=== PATIENT | female | born 1990 | race Caucasian/White ===

== ENCOUNTER 2019-01-30 20:13 | Inpatient (IN) | payer OTHER ==
[~2019-01-30] VITALS: Ht 170.2 cm; Wt 95.0 kg
[~2019-01-30 20:13] MED LIST: ABAT250V; IBUP800; OXYACE5T PO; PRENATAL + DHA1 EAC1 PO
[2019-01-30 20:47] LABS: BASOPHILS ABSOLUTE AUTO 0.04 K/mm3 (0.00-0.23); BASOPHILS PERCENT AUTO 0 % (0-2); EOSINOPHILS ABSOLUTE AUTO 0.13 K/mm3 (0.00-0.68); EOSINOPHILS PERCENT AUTO 1 % (0-6); Hematocrit 37.6 % (33.0-51.0); Hemoglobin 12.6 g/dL (11.5-16.0); IMMATURE GRAN ABSOLUTE AUTO 0.04 K/mm3 (0.00-0.10); IMMATURE GRAN PERCENT AUTO 0 % (0-1); LYMPHOCYTES ABSOLUTE AUTO 2.57 K/mm3 (0.84-5.20); LYMPHOCYTES PERCENT AUTO 28 % (21-46); MONOCYTES ABSOLUTE AUTO 0.48 K/mm3 (0.16-1.47); MONOCYTES PERCENT AUTO 5 % (4-13); Mean Corpuscular HGB 32.3 pg (26.0-34.0); Mean Corpuscular HGB Conc 33.5 g/dL (31.5-36.5); Mean Corpuscular Volume 96 fL (80-100); Mean Platelet Volume 11.7 fL (9.1-12.4); NEUTROPHILS ABSOLUTE AUTO 5.92 K/mm3 (1.96-9.15); NEUTROPHILS PERCENT AUTO 65 % (41-73); Platelet Count 219 K/mm3 (150-400); RDW Standard Deviation 45.8 fL (35.1-46.3); White Blood Cell Count 9.18 K/mm3 (4.00-11.30)
[2019-01-30] MEDS ORDERED: OMEPRAZOLE20 MG PO (20:53)
--- NOTE | 2019-01-31 11:41 | NUR ---
@1000 MOTHER SET UP WITH PUMP AND STARTED PUMPING
--- NOTE | 2019-01-31 19:20 | NUR ---
REPORT TO TIGRE PARRA
--- NOTE | 2019-01-31 22:13 | NUR ---
REPORT TO TIGRE HENRY
[2019-02-01 05:22] LABS: BASOPHILS ABSOLUTE AUTO 0.03 K/mm3 (0.00-0.23); BASOPHILS PERCENT AUTO 0 % (0-2); EOSINOPHILS ABSOLUTE AUTO 0.14 K/mm3 (0.00-0.68); EOSINOPHILS PERCENT AUTO 1 % (0-6); Hematocrit 36.4 % (33.0-51.0); IMMATURE GRAN ABSOLUTE AUTO 0.04 K/mm3 (0.00-0.10); IMMATURE GRAN PERCENT AUTO 0 % (0-1); LYMPHOCYTES ABSOLUTE AUTO 2.69 K/mm3 (0.84-5.20); LYMPHOCYTES PERCENT AUTO 24 % (21-46); MONOCYTES ABSOLUTE AUTO 0.65 K/mm3 (0.16-1.47); MONOCYTES PERCENT AUTO 6 % (4-13); Mean Corpuscular HGB 32.7 pg (26.0-34.0); Mean Platelet Volume 11.4 fL (9.1-12.4); NEUTROPHILS ABSOLUTE AUTO 7.64 K/mm3 (1.96-9.15); NEUTROPHILS PERCENT AUTO 68 % (41-73); Platelet Count 148 K/mm3 (150-400); RDW Coefficient Variation 12.9 % (11.7-14.2); RDW Standard Deviation 47.4 fL (35.1-46.3); Red Blood Cell Count 3.67 M/mm3 (3.80-5.20); White Blood Cell Count 11.19 K/mm3 (4.00-11.30)
[2019-02-01 05:28] LABS: Mean Corpuscular Volume 99 fL (80-100)
[2019-02-01] MEDS ORDERED: IBUP600 PO (11:24)
--- NOTE | 2019-02-01 13:15 | NUR ---
D/C HOME AMBULATING WITH AND FAMILY.
== END 2019-02-01 14:00 | disposition home or self-care (01) | DRG 807 ==
LOC: BC 20:13
PROVIDERS: Obstetrics & Gynecology; ADMIT Nurse Practitioner Obstetrics & Gynecology
PROC: 3E0P7VZ Introduction of Hormone into Female Reproductive, Via Natural or Artificial Opening (ICD-10-PCS; 2019-01-30)
PROC: 10E0XZZ Delivery of Products of Conception, External Approach (ICD-10-PCS; principal; 2019-01-31)
PROC: 3E0R3BZ Introduction of Anesthetic Agent into Spinal Canal, Percutaneous Approach (ICD-10-PCS; 2019-01-31)
PROC: 0HQ9XZZ Repair Perineum Skin, External Approach (ICD-10-PCS; 2019-01-31)
DX: O36.63X0 Maternal care for excessive fetal growth, third trimester, not applicable or unspecified (principal); Z37.0 Single live birth; Z3A.40 40 weeks gestation of pregnancy; O77.0 Labor and delivery complicated by meconium in amniotic fluid; O70.0 First degree perineal laceration during delivery
CPT/HCPCS: 36415; 51702; 85025; 86900; 86901; J1885; J2001; J2210; J2405; J2590; J3010; J7120

== ENCOUNTER 2021-08-26 20:08 | Inpatient (IN) | payer OTHER ==
[~2021-08-26] VITALS: Ht 170.2 cm; Wt 107.9 kg
[~2021-08-26 20:08] MED LIST changes: +IBUP600 PO; +OMEPRAZOLE20 MG PO
[2021-08-26 20:56] LABS: BASOPHILS ABSOLUTE AUTO 0.05 K/mm3 (0.00-0.23); BASOPHILS PERCENT AUTO 1 % (0-2); EOSINOPHILS PERCENT AUTO 3 % (0-6); Hematocrit 38.1 % (33.0-51.0); Hemoglobin 12.6 g/dL (11.5-16.0); IMMATURE GRAN ABSOLUTE AUTO 0.04 K/mm3 (0.00-0.10); IMMATURE GRAN PERCENT AUTO 0 % (0-1); LYMPHOCYTES PERCENT AUTO 23 % (21-46); MONOCYTES ABSOLUTE AUTO 0.48 K/mm3 (0.16-1.47); MONOCYTES PERCENT AUTO 5 % (4-13); Mean Corpuscular HGB 30.5 pg (26.0-34.0); Mean Corpuscular HGB Conc 33.1 g/dL (31.5-36.5); Mean Corpuscular Volume 92 fL (80-100); Mean Platelet Volume 11.3 fL (9.1-12.4); NEUTROPHILS ABSOLUTE AUTO 7.14 K/mm3 (1.96-9.15); NEUTROPHILS PERCENT AUTO 69 % (41-73); Platelet Count 280 K/mm3 (150-400); RDW Coefficient Variation 13.5 % (11.7-14.2); RDW Standard Deviation 45.5 fL (35.1-46.3); Red Blood Cell Count 4.13 M/mm3 (3.80-5.20); White Blood Cell Count 10.41 K/mm3 (4.00-11.30)
[2021-08-26 21:36] LABS: Influenza A, PCR NEGATIVE (NEGATIVE); Influenza B, PCR NEGATIVE (NEGATIVE); Resp Syncytial Virus, PCR NEGATIVE (NEGATIVE); SARS-Cov-2 (COVID-19) PCR, MMC NEGATIVE (NEGATIVE)
[2021-08-26] MEDS ORDERED: SERT100 PO (21:37)
[2021-08-28 06:36] LABS: Hematocrit 35.4 % (33.0-51.0); Hemoglobin 11.4 g/dL (11.5-16.0); Mean Corpuscular HGB 30.3 pg (26.0-34.0); Mean Corpuscular HGB Conc 32.2 g/dL (31.5-36.5); Mean Corpuscular Volume 94 fL (80-100); Mean Platelet Volume 11.3 fL (9.1-12.4); Platelet Count 217 K/mm3 (150-400); RDW Coefficient Variation 13.6 % (11.7-14.2); RDW Standard Deviation 46.7 fL (35.1-46.3); Red Blood Cell Count 3.76 M/mm3 (3.80-5.20); White Blood Cell Count 10.71 K/mm3 (4.00-11.30)
--- NOTE | 2021-08-28 07:41 | NUR ---
RN IN ROOM TO DO VITALS AND ASSESSMENT, PT SLEEPING.
[2021-08-28] MEDS ORDERED: IBUP800 PO (14:13)
--- NOTE | 2021-08-28 18:51 | NUR ---
DISCHARGE INSTRUCTIONS, WRITTEN AND VERBAL, GIVEN TO PT. ANSWERED ALL QUESTIONS AND CONCERNS. FOLLOW UP APPOINTMENT SCHEDULED. ALL PERSONAL BELONGINGS RETURNED. PT REQUESTING TORADOL AND THEN IV TO BE TAKEN OUT FOR DISCHARGE HOME, DRIVEN BY PRETTY.
--- NOTE | 2021-08-28 19:00 | NUR ---
TORADOL GIVEN, IV DISCONTINUED. PT IS DISCHARGED.
== END 2021-08-28 19:08 | disposition home or self-care (01) | DRG 807 ==
LOC: OBS 20:08 → BC 20:11 → OBS 20:19 → BC 20:21
PROVIDERS: ADMIT Nurse Practitioner Obstetrics & Gynecology
PROC: 10E0XZZ Delivery of Products of Conception, External Approach (ICD-10-PCS; principal; 2021-08-27)
PROC: 3E033VJ Introduction of Other Hormone into Peripheral Vein, Percutaneous Approach (ICD-10-PCS; 2021-08-27)
PROC: 3E0P7VZ Introduction of Hormone into Female Reproductive, Via Natural or Artificial Opening (ICD-10-PCS; 2021-08-27)
PROC: 0HQ9XZZ Repair Perineum Skin, External Approach (ICD-10-PCS; 2021-08-27)
PROC: 00HU33Z Insertion of Infusion Device into Spinal Canal, Percutaneous Approach (ICD-10-PCS; 2021-08-27)
PROC: 3E0R3BZ Introduction of Anesthetic Agent into Spinal Canal, Percutaneous Approach (ICD-10-PCS; 2021-08-27)
DX: O99.824 Streptococcus B carrier state complicating childbirth (principal); Z37.0 Single live birth; Z3A.39 39 weeks gestation of pregnancy; Z67.40 Type O blood, Rh positive; O70.0 First degree perineal laceration during delivery; Z20.822 Contact with and (suspected) exposure to COVID-19
CPT/HCPCS: 0241U; 36415; 51702; 85025; 85027; 86850; 86900; 86901; A9270; J0290; J1885; J2001; J2210; J3010; J7120

== ENCOUNTER 2021-11-04 09:43 | Day surgery (SDC) | payer OTHER ==
[~2021-11-04] VITALS: Ht 170.2 cm; Wt 97.5 kg
[~2021-11-04 09:43] MED LIST changes: +IBUP800 PO; +SERT100 PO
--- NOTE | 2021-11-04 11:29 | NUR ---
11/04/21 1129 ERNESTINA AVINA 0.25MG OF EPINEPHRINE (1MG/1ML) ADDED TO 50MLS OF BUPIVACAINE 0.5% TO CREATE A LOCAL SOLUTION OF 0.5% BUPIVACAINE WITH EPI 1:200,000.
--- NOTE | 2021-11-04 12:53 | NUR ---
11/04/21 1253 SARAI RIDDLE PT NOTES PAIN 08/12 - WOULD LIKE TO WAIT UNTIL SHE EATS LUNCH TO TAKE PRESCRIBED PAIN PILL FROM DR CABAN. PT ALSO NOTES BLURRY VISION. RN NOTIFIED DR SANCHES- DR SANCHES STATED THAT THIS SHOULD RESOLVE TODAY- IF VISION CONTINUES TO BE BLURRY- CALL DR CABAN OFFICE. RN RELAYED THIS TO PT- PT VERBALIZED UNDERSTANDING- STATES VISION STARTING TO GET BETTER
== END 2021-11-04 12:58 | disposition home or self-care (01) ==
LOC: ORSCSDS 09:43
PROVIDERS: Obstetrics & Gynecology
PROC: 0UT74ZZ Resection of Bilateral Fallopian Tubes, Percutaneous Endoscopic Approach (ICD-10-PCS; principal; 2021-11-04 11:15)
DX: Z30.2 Encounter for sterilization (principal); F32.A Depression, unspecified; Z79.899 Other long term (current) drug therapy
CPT/HCPCS: 88302; J0171; J0690; J1100; J1885; J2250; J2405; J2704; J2710; J3010; J7120